=== PATIENT | male | born 2000 | race African-American/Black ===

== ENCOUNTER 2019-03-29 22:26 | Emergency (ER) | payer SELFPAY | END 2019-03-29 23:03 | disposition home or self-care (01) | LOC: ERS 22:26 | DX: S60.511A Abrasion of right hand, initial encounter (principal); S60.512A Abrasion of left hand, initial encounter; J45.909 Unspecified asthma, uncomplicated; F31.9 Bipolar disorder, unspecified; F20.9 Schizophrenia, unspecified; W13.8XXA Fall from, out of or through other building or structure, initial encounter | CPT/HCPCS: 99283 ==

== ENCOUNTER 2019-11-26 14:49 | Emergency (ER) | payer MEDICAID, OTHER ==
[2019-11-26 15:37] LABS: #Basophils 0.1 thou/uL (0.0-0.2); #Eosinphils 0.1 thou/uL (0.0-0.7); #Lymphocytes 2.4 thou/uL (1.20-3.40); #Monocytes 0.4 thou/uL (0.11-0.59); #Neutrophils 6.7 thou/uL (1.40-6.50); %Basophils 0.7 % (0.0-1.0); %Eosinophils 0.9 % (0.0-10.0); %Lymphocytes 24.5 % (21.0-51.0); %Monocytes 4.5 % (0.0-10.0); %Neutrophils 69.4 % (42.0-75.0); Hemoglobin 13.7 g/dL (14.0-18.0); Mean Corpuscular HGB CONC 34.5 g/dL (32.0-36.0); Mean Corpuscular Hemoglobin 30.8 pg (27.0-31.0); Mean Corpuscular Volume 89.3 fL (78.0-98.0); Mean Platelet Volume 7.5 fL (7.4-10.4); Platelet Count 172 thou/uL (130-400); RBC Distribution Width 12.1 % (11.5-14.5); Red Blood Cell (RBC) Count 4.44 mill/uL (4.70-6.10); White Blood Cell (WBC) Count 9.6 thou/uL (4.8-10.8)
[2019-11-26 15:49] LABS: Bacteria/HPF None Seen HPF (None Seen); Bilirubin Negative (Negative); Blood, Urine Negative (Negative); Clarity Clear (Clear); Glucose, Urine (Dipstick) Normal (Negative); Ketone, Urine Negative (Negative); Leukocyte 250 Leu/uL (Negative); Nitrite Negative (Negative); Protein, Urine (Dipstick) 10 mg/dL (Neg-Trace); RBC/HPF 0-3 HPF (0-3); Specific Gravity, Urine 1.027 (1.002-1.036); Squamous Epithelial None Seen HPF (0-3); Urobilinogen 3 mg/dL (Less than 2); WBC/HPF 21-50 HPF (0-3); pH, Urine 6.5 (5.0-9.0)
[2019-11-26 15:58] LABS: ALT (SGPT) 8 U/L (8-55); AST (SGOT) 11 U/L (5-34); Albumin 4.6 g/dL (3.5-5.0); Alkaline Phosphatase 59 U/L (40-110); Anion Gap 9 mmol/L (10-20); BUN (Urea Nitrogen) 11 mg/dL (8.9-20.6); Bilirubin, Total 0.4 mg/dL (0.2-1.2); Calc. Creatinine Clearance 0 mL/min (70-130); Calcium 9.1 mg/dL (7.8-10.44); Carbon Dioxide 31 mmol/L (22-29); Chloride 104 mmol/L (98-107); Estimated GFR-MDRD Greater than 90; Globulin 2.3 g/dL (2.4-3.5); Glucose 109 mg/dL (70-105); Lipase 9 U/L (8-78); Protein, Total 6.9 g/dL (6.0-8.3); Sodium 140 mmol/L (136-145)
[2019-11-26] MEDS ORDERED: cefTRIAXone\\ROCEPHIN 250 MG VIAL ONE (16:16)
[2019-11-26] MEDS ORDERED: Azithromycin 250 MG TAB ONE (16:16)
[2019-11-26] MEDS ORDERED: Lidocaine 1% w/Epinephrine 1:100K 20 ML VIAL ONE (16:16)
[2019-11-26 16:57] LABS: HIV (1/2) Antibody/Antigen Non-Reactive (NonReactive); HIV 1/2 INDEX 0.09 S/CO (<1.00)
[2019-11-27 21:08] LABS: Chlam.trachomatis by PCR,Urine Not Detected (NotDetected)
== END 2019-11-26 16:35 | disposition home or self-care (01) ==
LOC: ERS 14:49
DX: N34.1 Nonspecific urethritis (principal); F31.9 Bipolar disorder, unspecified; F20.9 Schizophrenia, unspecified; F17.210 Nicotine dependence, cigarettes, uncomplicated
CPT/HCPCS: 36415; 80053; 81003; 81015; 83605; 83690; 85025; 87389; 87491; 87591; 96372; 99283; J0696

== ENCOUNTER 2021-11-18 10:33 | Emergency (ER) | payer MEDICAID, OTHER ==
[2021-11-18] MEDS ORDERED: cefTRIAXone\\ROCEPHIN 500 MG VIAL ONE (11:43)
[2021-11-18] MEDS ORDERED: Lidocaine 1% PF 5 ML VIAL ONE (11:43)
[2021-11-19 14:25] LABS: Chlam.trachomatis by PCR,Urine Not Detected (NotDetected)
== END 2021-11-18 12:29 | disposition home or self-care (01) ==
LOC: ERS 10:33
DX: N34.1 Nonspecific urethritis (principal); F17.210 Nicotine dependence, cigarettes, uncomplicated
CPT/HCPCS: 87491; 87591; 96372; 99283; J0696